=== PATIENT | female | born 1945 | race Two or more races ===

== ENCOUNTER 2022-11-09 15:00 | Emergency (ER) | payer OTHER ==
[~2022-11-09] VITALS: Ht 144.8 cm; Wt 44.5 kg
[2022-11-09] MEDS ORDERED: SYNTHROID75 MCG PO (15:17)
[2022-11-09] MEDS ORDERED: PROAIR RESPICL90 MCG IH (15:17)
[2022-11-09] MEDS ORDERED: TRELEGY ELLIPT1 EACH (15:17)
[2022-11-09] MEDS ORDERED: ATORVASTATIN CA10 MG PO (15:17)
[2022-11-09] MEDS ORDERED: PLAVIX75 MG PO (15:17)
[2022-11-09] MEDS ORDERED: SINGULAIR10 MG PO (15:18)
== END 2022-11-09 16:56 | disposition home or self-care (01) ==
LOC: ER 15:00
DX: H10.89 Other conjunctivitis (principal); Z88.6 Allergy status to analgesic agent; I10 Essential (primary) hypertension